=== PATIENT | female | born 1960 | race Caucasian/White ===

== ENCOUNTER 2018-11-17 10:15 | Outpatient (CLI) | payer BC ==
--- NOTE | 2018-11-17 11:35 | XRay Report ---
Metastatic bone survey. 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 C-spine: No lytic or blastic lesions are identified. Minimal discogenic degenerative changes are seen . T-spine: No lytic or blastic lesions are seen. Mild discogenic degenerative changes are seen. Align ment is anatomic. L-spine: No lytic or blastic lesions are identified. Discogenic degenerative changes are not seen. Alignment is anatomic. Chest: No lytic or blastic lesions are identified. Pelvis: No lytic or blastic lesions are identified. Right humerus: No lytic or blastic lesions are seen. Left humerus: No lytic or blastic lesions are seen.> Right femur: No lytic or blastic lesions are seen. Left femur: No lytic or blastic lesions are seen. Impression: Negative study. Signer Name: Deejay Heaton MD Signed: 11/17/2018 11:30 AM Workstation Name: [id number]
== END 2018-11-17 10:16 | disposition home or self-care (01) ==
LOC: XRAY 10:15
PROVIDERS: ATTEND Hospitalist
DX: M47.814 Spondylosis without myelopathy or radiculopathy, thoracic region (principal); M47.812 Spondylosis without myelopathy or radiculopathy, cervical region; I10 Essential (primary) hypertension; Z90.710 Acquired absence of both cervix and uterus
CPT/HCPCS: 77074